=== PATIENT | male | born 1985 | race Caucasian/White ===

== ENCOUNTER 2018-04-03 10:57 | Emergency (ER) | payer SELFPAY ==
[~2018-04-03] VITALS: Ht 193 cm; Wt 135.2 kg
[2018-04-03 11:06] VITALS: BP 133/82
--- NOTE | 2018-04-03 11:09 | NUR ---
TO LOBBY A/W BED, JESSEE POWER, BARBIE NOTED
--- NOTE | 2018-04-03 13:45 | NUR ---
PT BIB SELF C/O DOG BITE YESTERDAY TO LEFT UPPER THIGH, ABRASION NOTED, BLEEDING CONTROLLED. 7/10 ACHING PAIN. PT DENIES N/V/D; PINK/WARM/DRY; AAOX4, PERRL, WITH EVEN AND STEADY GAIT; LUNGS CLEAR BL, BREATHING UNLABORED; HR EVEN AND REGULAR, BL PERIPHERAL PULSES PRESENT; BS ACTIVE X4, NO TENDERNESS TO PALPATION, NO HEPATOSPLENOMEGALLY PALPATED, RESONANT TO PERCUSSION; PT DENIES ANY FEVER, CP, SOB, OR COUGH AT THIS TIME; PT STATES 7/10 PAIN AT THIS TIME; VSS; PATIENT POSITIONED FOR COMFORT; HOB ELEVATED; BEDRAILS UP X2; BED DOWN.
--- NOTE | 2018-04-03 13:50 | NUR ---
PATIENT AMBULATED TO BED 9
[2018-04-03] MEDS ORDERED: KETOROLAC 60 MG/2 ML VIAL IM ONE (13:55)
[2018-04-03] MEDS ORDERED: NEOMYCIN/POLYMYXIN/BACITRACIN 0.9 GM/1 PKT TP ONE (13:55)
[2018-04-03] MEDS ORDERED: cefTRIAXone 1,000 MG in LIDOCAINE 1% ***ER ONLY *** 2.1 ML IM ONE (13:55)
[2018-04-03] MEDS ORDERED: cefTRIAXone 1,000 MG VIAL ONE (14:05)
[2018-04-03] MEDS ORDERED: LIDOCAINE MPF 1% 5mL VIAL ONE (14:07)
--- NOTE | 2018-04-03 14:30 | NUR ---
PT AWAITING DISCHARGE INSTRUCTIONS FROM EDMD
--- NOTE | 2018-04-03 14:52 | NUR ---
ANIMAL BITE FORM FAXED TO [phone]
[2018-04-03 15:14] VITALS: BP 145/75
--- NOTE | 2018-04-03 15:14 | NUR ---
Patient discharged with v/s stable. Written and verbal after care instructions given and explained. Patient alert, oriented and verbalized understanding of instructions. Ambulatory with steady gait. All questions addressed prior to discharge. ID band removed. Patient advised to follow up with PMD. Rx of MOTRIN AND AUGMENTIN given. Patient educated on indication of medication including possible reaction and side effects. Opportunity to ask questions provided and answered.
== END 2018-04-03 15:14 | disposition home or self-care (01) ==
LOC: MED 10:57
DX: S71.152A Open bite, left thigh, initial encounter (principal); I10 Essential (primary) hypertension; W54.0XXA Bitten by dog, initial encounter; Y93.89 Activity, other specified; Y92.89 Other specified places as the place of occurrence of the external cause; Y99.8 Other external cause status
CPT/HCPCS: 90471; 90715; 96372; 99283; J0696; J1885; J2001